=== PATIENT | male | born 1995 | race Caucasian/White ===

== ENCOUNTER 2017-05-08 03:37 | Inpatient (IN) | payer OTHER ==
[2017-05-08] VITALS (8 sets, daily range): BP systolic 94–136; BP diastolic 50–67
[~2017-05-08] VITALS: Ht 172.7 cm; Wt 57.3 kg
[2017-05-08 04:47] LABS: HEMATOCRIT 46.4 % (42.0-52.0); HEMOGLOBIN 15.7 g/dl (14.0-18.0); MEAN CELL VOLUME 84.4 fl (80.0-94.0); MEAN CORPUSCULAR HGB 28.5 pg (27.0-31.0); MEAN CORPUSCULAR HGB CONC 33.8 g/dl (33.0-37.0); MEAN PLATELET VOLUME 9.3 fl (9.6-12.3); PLATELET COUNT AUTOMATED 318 10*3/uL (130-400); RED CELL DISTRI WIDTH 11.3 % (0-14.5); WHITE BLOOD COUNT 22.8 10*3/uL (4.8-10.8)
[2017-05-08 05:03] LABS: ACETAMINOPHEN (TYLENOL) < 2.0 ug/ml (10-30); ALBUMIN 4.3 gm/dl (3.1-4.5); ALKALINE PHOSPHATASE 85 U/L (45-117); BUN 11 mg/dl (7-24); CHLORIDE 99 mmol/L (98-107); CREATININE 0.82 mg/dL (0.70-1.30); POTASSIUM 3.3 mmol/L (3.5-5.1); SGOT/AST 28 IU/L (3-35); SGPT/ALT 24 U/L (12-78); SODIUM 136 mmol/L (136-145); TOTAL PROTEIN 8.2 gm/dL (6.4-8.2)
[2017-05-08 05:06] LABS: PLATELET SUFFICIENCY NORMAL (NORMAL); TOTAL CELLS COUNTED 100 #CELLS
[2017-05-08 06:01] LABS: BILIRUBIN NEGATIVE (NEGATIVE); BLOOD TRACE-INTACT (NEGATIVE); CLARITY CLEAR (CLEAR); COLOR YELLOW (YELLOW); GLUCOSE NEGATIVE (NEGATIVE); KETONE TRACE (NEGATIVE); LEUKO ESTERASE NEGATIVE (NEGATIVE); NITRITE NEGATIVE (NEGATIVE); PH 5.5 (5.0-9.0); SPECIFIC GRAVITY <= 1.005 (1.005-1.030); UROBILINOGEN 0.2 E.U./dl (0.2-1.0)
[2017-05-08 06:09] LABS: URINE AMPHETAMINES < 1000 (1000ng/ml); URINE BARBITURATES < 200 (200ng/ml); URINE BENZODIAZEPINES < 200 (200ng/ml); URINE CANNABINOIDS (THC) > 50 (50ng/ml); URINE COCAINE > 300 (300ng/ml); URINE METHADONE < 300 (300ng/ml); URINE OPIATES < 300 (300ng/ml)
[2017-05-08 06:10] LABS: URINE PHENCYCLIDINE < 25 (25ng/ml)
[2017-05-08 06:18] LABS: BACTERIA TRACE
[2017-05-08 14:27] LABS: BASO # 0.1 10*3/uL (0.0-0.1); BASO % 0.3 % (0.0-1.0); EOS # 0.2 10*3/uL (0.0-0.4); EOS % 1.1 % (1.0-4.0); HEMATOCRIT 46.2 % (42.0-52.0); HEMOGLOBIN 15.8 g/dl (14.0-18.0); LYMPH # 2.8 10*3/uL (1.3-4.4); LYMPH % 18.5 % (27.0-41.0); MEAN CELL VOLUME 82.9 fl (80.0-94.0); MEAN CORPUSCULAR HGB 28.4 pg (27.0-31.0); MEAN CORPUSCULAR HGB CONC 34.2 g/dl (33.0-37.0); MEAN PLATELET VOLUME 9.1 fl (9.6-12.3); MONO # 1.2 10*3/uL (0.1-1.0); NEUT # 10.7 10*3/uL (2.3-7.9); NEUT % 71.8 % (47.0-73.0); PLATELET COUNT AUTOMATED 322 10*3/uL (130-400); RED BLOOD COUNT 5.57 10*6/uL (4.50-5.90); RED CELL DISTRI WIDTH 11.5 % (0-14.5)
[2017-05-08 14:45] LABS: ALBUMIN 3.8 gm/dl (3.1-4.5); ALKALINE PHOSPHATASE 92 U/L (45-117); BUN 8 mg/dl (7-24); CHLORIDE 105 mmol/L (98-107); CPK 714 U/L (39-308); CREATININE 0.77 mg/dL (0.70-1.30); SGOT/AST 33 IU/L (3-35); SGPT/ALT 24 U/L (12-78); SODIUM 140 mmol/L (136-145); TOTAL PROTEIN 7.5 gm/dL (6.4-8.2)
[2017-05-08 14:48] LABS: POTASSIUM 4.3 mmol/L (3.5-5.1); TROPONIN I < 0.015 ng/ml (<0.045)
[2017-05-08 14:53] LABS: CKMB 9.2 ng/ml (0.5-3.6)
== END 2017-05-08 20:08 | disposition left against medical advice (07) | DRG 894 ==
LOC: ED 03:37 → EDHOLD 05:58 → ICCU 06:01
PROVIDERS: Emergency Medicine Emergency Medical Services; Internal Medicine
DX: F10.120 Alcohol abuse with intoxication, uncomplicated (principal); G92 Toxic encephalopathy; F17.200 Nicotine dependence, unspecified, uncomplicated; F31.9 Bipolar disorder, unspecified; F12.10 Cannabis abuse, uncomplicated; F14.10 Cocaine abuse, uncomplicated; Z53.21 Procedure and treatment not carried out due to patient leaving prior to being seen by health care provider; V49.9XXA Car occupant (driver) (passenger) injured in unspecified traffic accident, initial encounter; Z91.040 Latex allergy status; Y93.89 Activity, other specified; Y92.488 Other paved roadways as the place of occurrence of the external cause; Y99.8 Other external cause status

== ENCOUNTER 2023-04-05 11:09 | Emergency (ER) | payer OTHER ==
[~2023-04-05] VITALS: Ht 177.8 cm; Wt 63.5 kg
[2023-04-05 12:31] LABS: BASO % 0.5 % (0.0-1.0); EOS # 0.1 10*3/uL (0.0-0.4); EOS % 0.6 % (1.0-4.0); LYMPH # 1.3 10*3/uL (1.3-4.4); LYMPH % 17.3 % (27.0-41.0); MEAN CELL VOLUME 84.7 fl (80.0-94.0); MEAN CORPUSCULAR HGB 28.6 pg (27.0-31.0); MEAN CORPUSCULAR HGB CONC 33.8 g/dl (33.0-37.0); MEAN PLATELET VOLUME 9.2 fl (9.6-12.3); MONO # 0.4 10*3/uL (0.1-1.0); MONO % 5.1 % (3.0-9.0); NEUT # 5.9 10*3/uL (2.3-7.9); NEUT % 76.2 % (47.0-73.0); PLATELET COUNT AUTOMATED 335 10*3/uL (130-400); RED BLOOD COUNT 5.31 10*6/uL (4.50-5.90); RED CELL DISTRI WIDTH 11.6 % (0-14.5); WHITE BLOOD COUNT 7.7 10*3/uL (4.8-10.8)
[2023-04-05 12:51] LABS: ALKALINE PHOSPHATASE 76 U/L (46-116); BUN 12 mg/dl (9-23); CHLORIDE 102 mmol/L (98-107); SGPT/ALT 17 U/L (5-49); TOTAL PROTEIN 7.4 gm/dL (6.0-8.0)
== END 2023-04-05 14:45 | disposition home or self-care (01) ==
LOC: ED 11:09
PROVIDERS: Physician Assistant Medical
DX: F41.9 Anxiety disorder, unspecified (principal); R91.1 Solitary pulmonary nodule; J45.909 Unspecified asthma, uncomplicated; F17.290 Nicotine dependence, other tobacco product, uncomplicated; F10.10 Alcohol abuse, uncomplicated

== ENCOUNTER → 2023-04-29 | Outpatient (CLI) | payer OTHER | END | disposition home or self-care (01) | LOC: CT 07:43 | PROVIDERS: ATTEND Nurse Practitioner Primary Care | DX: J43.9 Emphysema, unspecified (principal); R91.1 Solitary pulmonary nodule; J84.10 Pulmonary fibrosis, unspecified ==

== ENCOUNTER 2023-07-27 15:23 | Emergency (ER) | payer OTHER ==
[~2023-07-27] VITALS: Ht 180.3 cm; Wt 64.0 kg
[2023-07-27 15:43] LABS: BASO # 0.1 10*3/uL (0.0-0.1); BASO % 0.6 % (0.0-1.0); EOS # 0.1 10*3/uL (0.0-0.4); EOS % 0.5 % (1.0-4.0); HEMATOCRIT 47.8 % (42.0-52.0); LYMPH # 1.6 10*3/uL (1.3-4.4); LYMPH % 16.5 % (27.0-41.0); MEAN CELL VOLUME 86.4 fl (80.0-94.0); MEAN CORPUSCULAR HGB CONC 32.4 g/dl (33.0-37.0); MEAN PLATELET VOLUME 9.2 fl (9.6-12.3); MONO # 0.9 10*3/uL (0.1-1.0); MONO % 9.1 % (3.0-9.0); NEUT # 6.8 10*3/uL (2.3-7.9); PLATELET COUNT AUTOMATED 317 10*3/uL (130-400); RED BLOOD COUNT 5.53 10*6/uL (4.50-5.90); WHITE BLOOD COUNT 9.4 10*3/uL (4.8-10.8)
[2023-07-27 16:03] LABS: BUN 9 mg/dl (9-23); CHLORIDE 103 mmol/L (98-107); POTASSIUM 3.7 mmol/L (3.4-5.1)
== END 2023-07-27 16:48 | disposition home or self-care (01) ==
LOC: ED 15:23
PROVIDERS: Nurse Practitioner Family
DX: E16.2 Hypoglycemia, unspecified (principal); F41.9 Anxiety disorder, unspecified; J45.909 Unspecified asthma, uncomplicated; F31.9 Bipolar disorder, unspecified; F12.10 Cannabis abuse, uncomplicated; F14.10 Cocaine abuse, uncomplicated; F17.200 Nicotine dependence, unspecified, uncomplicated; F10.10 Alcohol abuse, uncomplicated

== ENCOUNTER 2023-08-17 13:09 | Emergency (ER) | payer OTHER ==
[~2023-08-17] VITALS: Ht 177.8 cm; Wt 65.8 kg
[2023-08-17] MEDS ORDERED: ALBUTEROL SULFATE HF (13:15)
[2023-08-17] MEDS ORDERED: methylPREDNISolone acetate 40 MG/ML VIAL IM ONE (13:30)
[2023-08-17] MEDS ORDERED: Ketorolac Tromethamine 30 MG/ML VIAL IM ONE (13:30)
[2023-08-17] MEDS ORDERED: ZANAFLEX4 MG PO (15:23)
[2023-08-17] MEDS ORDERED: MEDROL DOSEPAK4 MG PO (15:23)
[2023-08-17] MEDS ORDERED: NAPROSYN500 MG PO (15:23)
== END 2023-08-17 14:51 | disposition home or self-care (01) ==
LOC: ED 13:09
DX: S39.012A Strain of muscle, fascia and tendon of lower back, initial encounter (principal); S29.012A Strain of muscle and tendon of back wall of thorax, initial encounter; J45.909 Unspecified asthma, uncomplicated; F17.200 Nicotine dependence, unspecified, uncomplicated; Z79.899 Other long term (current) drug therapy; X50.0XXA Overexertion from strenuous movement or load, initial encounter; Y93.89 Activity, other specified; Y92.89 Other specified places as the place of occurrence of the external cause; Y99.8 Other external cause status

== ENCOUNTER 2023-08-20 22:39 | Emergency (ER) | payer OTHER ==
[~2023-08-20] VITALS: Ht 177.8 cm; Wt 56.7 kg
[~2023-08-20 22:39] MED LIST: ALBUTEROL SULFATE HF; MEDROL DOSEPAK4 MG PO; NAPROSYN500 MG PO; ZANAFLEX4 MG PO
[2023-08-20] MEDS ORDERED: IBUPROFEN 800 MG TAB PO ONE (23:00)
== END 2023-08-20 23:45 | disposition home or self-care (01) ==
LOC: ED 22:39
DX: S60.211A Contusion of right wrist, initial encounter (principal); M79.644 Pain in right finger(s); M25.552 Pain in left hip; F17.200 Nicotine dependence, unspecified, uncomplicated; Z79.899 Other long term (current) drug therapy; W18.39XA Other fall on same level, initial encounter; Y93.89 Activity, other specified; Y92.89 Other specified places as the place of occurrence of the external cause; Y99.8 Other external cause status

== ENCOUNTER 2023-11-05 06:27 | Emergency (ER) | payer OTHER ==
[~2023-11-05] VITALS: Ht 177.8 cm; Wt 67.1 kg
[2023-11-05] MEDS ORDERED: Tdap Vaccine 0.5 ML SYR (Adult Vaccine) IM ONE (06:35)
[2023-11-05] MEDS ORDERED: Rabies Vaccine 1 ML VIAL IM ONE (06:35)
[2023-11-05] MEDS ORDERED: Rabies Immune Globulin 300 UNIT/2 ML VIAL IM ONE (06:40)
[2023-11-05] MEDS ORDERED: AMOX-CLAV 875-1 EACH PO (06:47)
[2023-11-05] MEDS ORDERED: Rabies Immune Globulin 150O UNIT/10 ML IM ONE (07:15)
== END 2023-11-05 09:42 | disposition home or self-care (01) ==
LOC: ED 06:27
DX: S61.451A Open bite of right hand, initial encounter (principal); J45.909 Unspecified asthma, uncomplicated; F31.9 Bipolar disorder, unspecified; F41.9 Anxiety disorder, unspecified; F10.10 Alcohol abuse, uncomplicated; F17.200 Nicotine dependence, unspecified, uncomplicated; W54.0XXA Bitten by dog, initial encounter; Y93.89 Activity, other specified; Y92.89 Other specified places as the place of occurrence of the external cause; Y99.8 Other external cause status

== ENCOUNTER 2023-11-07 21:18 | Emergency (ER) | payer OTHER ==
[~2023-11-07] VITALS: Ht 177.8 cm
[~2023-11-07 21:18] MED LIST changes: +AMOX-CLAV 875-1 EACH PO
[2023-11-07] MEDS ORDERED: ACETAMINOPHEN 325 MG TAB PO ONE (21:30)
== END 2023-11-07 22:14 | disposition home or self-care (01) ==
LOC: ED 21:18
DX: S63.502A Unspecified sprain of left wrist, initial encounter (principal); F17.200 Nicotine dependence, unspecified, uncomplicated; Z79.2 Long term (current) use of antibiotics; Z79.899 Other long term (current) drug therapy; W10.8XXA Fall (on) (from) other stairs and steps, initial encounter; Y93.89 Activity, other specified; Y92.89 Other specified places as the place of occurrence of the external cause; Y99.8 Other external cause status